=== PATIENT | female | born 1985 | race Caucasian/White ===

== ENCOUNTER 2017-05-27 19:45 | Emergency (ER) | payer MEDICAID, OTHER ==
[~2017-05-27] VITALS: Ht 165.1 cm; Wt 89.4 kg
[~2017-05-27 19:45] MED LIST: HYDR-3498 PO; ONDA4TAB35 PO
[2017-05-27 20:14] VITALS: Ht 165.1 cm; Wt 89.4 kg
[2017-05-27] MEDS ORDERED: KETOROLAC 30 MG INJ IV STA (21:44)
[2017-05-27] MEDS ORDERED: SOD CHLORIDE 0.9% 1,000 ML IV STA (21:44)
--- NOTE | 2017-05-27 23:01 | RADRPT ---
PROCEDURE: XR Chest. CLINICAL INDICATION: Chest pain TECHNIQUE: Single frontal view of the chest in apical lordotic position. COMPARISON: None. FINDINGS: The cardiomediastinal silhouette is within normal limits. Heart size is likely exaggerated by portab le technique and apical lordotic positioning. The lungs are clear. No signs of pleural fluid or pneu mothorax are seen. The osseous structures and soft tissues are unremarkable. IMPRESSION: No evidence for active cardiopulmonary disease. RPTAT: [facility] Physician Skylra Date Time Electronically viewed and signed by Physician Skylar on 05/27/2017 23:01 RS/
--- NOTE | 2017-05-27 23:23 | ERD ---
ER Documentation Chief Complaint Chief Complaint Chest pain HPI The patient is a 31-year-old female, with no significant past medical history, who presents to the Emergency Department with complaint of chest pain for the past 3 days. The patient reports that her pain is localized to the anterior upper chest wall, and intermittently radiates into the left upper extremity with paresthesias. The pain is described as sharp, constant, noted to be worse with palpation of the affected area, movement of the left upper extremity and taking deep breaths. She rates her current pain as 5 out of 10, but has not yet taken any medication for pain relief. She notes that she has experienced similar symptoms in the past, which usually occurs when she is angry. However, the symptoms have lasted for the past 3 days, prompting the visit to the ED. She denies diaphoresis, weakness, nausea, vomiting, shortness of breath, cough or palpitations. Denies any exertional symptoms. Denies orthopnea or paroxysmal nocturnal dyspnea. Patient denies any known history of diabetes, hypertension, dyslipidemia, obesity or tobacco use. Denies any positive familial cardiac history. Denies recent travel, lower extremity swelling, calf swelling or calf tenderness. Denies recent travel, pregnancies, surgeries, prolonged periods of immobilization, malignancy. Denies history of DVT or PE. ROS All systems reviewed and are negative except as per history of present illness. Medications Home Meds Active Scripts Naproxen* (Naprosyn*) 500 Mg Tablet, 500 MG PO BID Y for PAIN AND/OR INFLAMMATION, #30 TAB Prov:DEANNE ALARCON PA-C 05/27/17 Ondansetron Hcl* (Zofran* ODT) 4 mg -ODT Tab.disper, 4 MG PO Q6 Y for NAUSEA AND /OR VOMITING, #10 TAB Prov:NICHOLAS RAMIREZ PA-C 10/26/15 Hydrocodone Bit-Acetaminophen* ([place]*) 5-325 Mg Tab, 1 TAB PO Q6 Y for PAIN, # 7 TAB Prov:NICHOALS RAMIREZ PA-C 10/26/15 Allergies Allergies: Coded Allergies: No Known Allergy (Unverified , 10/26/15) PMhx/Soc History of Surgery: Yes ( X3) Anesthesia Reaction: No Hx Neurological Disorder: No Hx Respiratory Disorders: No Hx Cardiac Disorders: No Hx Psychiatric Problems: No Hx Miscellaneous Medical Probl: No Hx Alcohol Use: Yes Hx Substance Use: No Hx Tobacco Use: Yes Physical Exam Vitals Vital Signs Date Time Temp Pulse Resp B/P Pulse Ox O2 Delivery O2 Flow Rate FiO2 05/27/17 23:36 78 18 131/67 97 Room Air 05/27/17 20:14 96.9 61 20 110/62 99 Physical Exam GENERAL: Well-developed, well-nourished, female, in no acute distress. HEENT: Head is normocephalic, atraumatic. No scleral pallor or icterus. Pupils equal, round and reactive to light. Extraocular movements intact. Conjunctiva pink. Moist mucous membranes. NECK: Supple. Full range of motion. No carotid bruits. No JVD. RESPIRATORY: Lungs are clear to auscultation bilaterally. No rales, rhonchi or wheezing. Equal breath sounds. Normal expiratory effort. CARDIOVASCULAR: Regular rate and rhythm. S1 and S2 normal. No murmurs, rubs, or gallops. Distal pulses are palpable, 2+ bilaterally. Capillary refill is less than 2 seconds. CHEST WALL: Tenderness to palpation of the anterior chest wall, noted by facial wincing and the patient withdrawing from pain. No crepitus. No flail chest. GASTROINTESTINAL: Abdomen is soft, non-tender, and non-distended. Normal bowel sounds. FLANK: No CVA tenderness. BACK: No midline tenderness. EXTREMITIES: No clubbing, cyanosis, or edema. Normal skin perfusion. Moving all extremities. No lower extremity swelling. No calf swelling or calf tenderness. Muscle tone is normal. No focal swelling or erythema. NEUROLOGIC: The patient is alert, awake, and oriented x 3. No focal neurologic deficits. INTEGUMENT: Skin is intact. Warm and dry. No rashes, no vesicles, no petechiae present. Normal turgor. PSYCHIATRIC: Cooperative. Appropriate. Result Diagram: 05/27/17219905/27/172199 Results 24 hrs Laboratory Tests Test 05/27/17 22:00 White Blood Count 7.810^3/ul Red Blood Count 4.1510^6/ul Hemoglobin 12.7g/dl Hematocrit 38.2% Mean Corpuscular Volume 92.0fl Mean Corpuscular Hemoglobin 30.6pg Mean Corpuscular Hemoglobin Concent 33.2g/dl Red Cell Distribution Width 13.1% Platelet Count 29097^3/UL Mean Platelet Volume 11.2fl Neutrophils % 49.4% Lymphocytes % 40.2% Monocytes % 6.3% Eosinophils % 3.4% Basophils % 0.4% Nucleated Red Blood Cells % 0.0/100WBC Neutrophils # 3.810^3/ul Lymphocytes # 3.110^3/ul Monocytes # 0.510^3/ul Eosinophils # 0.310^3/ul Basophils # 0.010^3/ul Nucleated Red Blood Cells # 0.010^3/ul Prothrombin Time 12.5Sec Prothrombin Time Ratio 1.0 INR International Normalized Ratio 0.93 Activated Partial Thromboplast Time 27.0Sec Sodium Level 143mmol/L Potassium Level 4.0mmol/L Chloride Level 106mmol/L Carbon Dioxide Level 28mmol/L Anion Gap 13 Blood Urea Nitrogen 11mg/dl Creatinine 0.77mg/dl Glucose Level 87mg/dl Calcium Level 9.0mg/dl Total Bilirubin 0.2mg/dl Direct Bilirubin 0.00mg/dl Indirect Bilirubin 0.2mg/dl Aspartate Amino Transf (AST/SGOT) 33IU/L Alanine Aminotransferase (ALT/SGPT) 50IU/L Alkaline Phosphatase 125IU/L Troponin I < 0.012ng/ml B-Type Natriuretic Peptide 77PG/ML Total Protein 6.4g/dl Albumin 4.3g/dl Globulin 2.10g/dl Albumin/Globulin Ratio 2.04 Current Medications Medications (Trade) Dose Ordered Sig/Yeyo Route PRN Reason Start Time Stop Time Status Last Admin Dose Admin Sodium Chloride (NS) 1,000 ml @ 1,000 mls/hr Q1H STAT IV 05/27/17 21:44 05/27/17 22:43 DC 05/27/17 22:03 Ketorolac Tromethamine (Toradol) 30 mg ONCE STAT IV 05/27/17 21:44 05/27/17 21:46 DC 05/27/17 22:03 Procedures/MDM DIAGNOSTIC TESTS AND INTERPRETATION: PROCEDURE: XR Chest. CLINICAL INDICATION: Chest pain TECHNIQUE: Single frontal view of the chest in apical lordotic position. COMPARISON: None. FINDINGS:The cardiomediastinal silhouette is within normal limits. Heart size is likely exaggerated by portable technique and apical lordotic positioning. The lungs are clear. No signs of pleural fluid or pneumothorax are seen. The osseous structures and soft tissues are unremarkable. IMPRESSION:No evidence for active cardiopulmonary disease. Physician Skylar Date Time Electronically viewed and signed by Physician Skylar on 05/27/2017 23:01 EKG Reviewed and Interpreted by: Dr. Rojas EKG interpretation: Sinus bradycardia. 59 bpm. Normal axis. No ectopy. No ST segment elevations. No left bundle branch block. EMERGENCY DEPARTMENT COURSE: The patient was able throughout the ED course. IV access established by nursing staff. EKG, chest x-ray and laboratory testing Toradol administered. On reevaluation, the patient reports no new complaints, and decreased pain. Discussed patient case and presentation with the ED supervising physician, Dr. Griffith, who recommends that the patient be discharged home to follow-up with primary medical provider as an outpatient. MEDICAL DECISION MAKING: This is a 31-year-old female presenting to the Emergency Department with chest pain. The patient had tenderness to palpation over the chest wall on physical examination, but otherwise, no significant abnormalities were noted. Vital signs were stable. Patient is afebrile, with no tachycardia, no tachypnea, and normal O2 saturation. The differential diagnosis includes, but is not limited to gastritis, trauma, pneumothorax, dysrhythmia, hypertrophic cardiomyopathy, pericarditis, Prinzmetals angina, myocardial infarction, mitral valve prolapse , peptic ulcer disease, GERD, pleurisy, costochondritis, endocarditis, musculoskeletal pain, acute coronary syndrome, pulmonary embolism, aortic dissection, esophageal perforation, myocarditis, tamponade. The clinical presentation does not suggest an acute coronary syndrome, acute pulmonary embolism or any other emergent medical condition at this time. Labs: CBC reveals no leukocytosis. Hemoglobin and hematocrit are stable, no significant anemia noted. Electrolytes within normal limits, no indication for electrolyte replacement. BUN and creatinine normal, no evidence of pre-renal azotemia or acute kidney injury. Troponin < 0.012, greater than 6 hours after chest pain began making NSTEMI unlikely. Unstable angina unlikely on history/physical exam. Pulmonary embolism unlikely given risk factor profile and very atypical presentation. Aortic dissection unlikely given equal pulses and no tearing pain. Esophageal perforation unlikely: no retching or recent instrumentation. No evidence of pneumothorax on CXR, and patient has normal O2 saturation, and no signs of respiratory distress. After rest and administration of Toradol, patient's symptoms improved. Upon review and interpretation of the patient's presentation and overall ER course, I believe patient's symptoms are most consistent with atypical chest pain and chest wall pain. Suspect possible costochondritis. At this time, the patient is in stable condition and therefore can be discharged home with prescription for Naproxen and given strict return precautions or signs of deteriorating or worsening condition. She is strongly advised to follow up with her primary care provider within 2-3 days for reevaluation and further management, or return to the ER sooner if symptoms worsen. If symptoms return or worsen, patient should also consider outpatient cardiology evaluation. I shared my medical decision making and plan with the patient at length and in great detail, and she verbally understands and agrees with the plan for further observation and care as an outpatient. At the time of discharge, all questions were answered. Departure Diagnosis: Primary Impression: Atypical chest pain Additional Impression: Chest wall pain Condition: Stable Patient Instructions: Chest Pain, Uncertain Cause, Chest Wall Pain, Costochondritis Additional Instructions: Llame al doctor MAANA y suresh maged ESTEFANÍA PARA DENTRO DE 2-3 MCKEON.Dgale a la secretaria que nosotros le instruimos hacer esta estefanía.Avise o llame si welsh condicin se empeora antes de la estefanía. Regresa aqui si peor o no mejor. DEANNE ALARCON PA-C May 27, 2017 23:23
[2017-05-27] MEDS ORDERED: NAPR-260 PO (23:24)
[2017-05-27 23:36] VITALS: BP 131/67; PULSE 78; RESP 18
== END 2017-05-27 23:39 | disposition home or self-care (01) ==
LOC: FTE 19:45
DX: R07.89 Other chest pain (principal); R06.02 Shortness of breath
CPT/HCPCS: 36415; 71010; 80053; 83880; 84484; 85025; 85610; 85730; 93005; 96374; J1885; J7030; Z7502

== ENCOUNTER → 2017-09-20 | Emergency (ER) | END | disposition home or self-care (01) ==

== ENCOUNTER 2018-12-02 18:14 | Emergency (ER) | payer OTHER ==
[~2018-12-02] VITALS: Wt 88.5 kg
[~2018-12-02 18:14] MED LIST changes: +IBUP-1542 PO; +NAPR-985 PO
[2018-12-02] MEDS ORDERED: IBUP-1542 PO (19:19)
--- NOTE | 2018-12-02 19:24 | ERD ---
ER Documentation Chief Complaint Chief Complaint BILAT BREAST PAIN X'S 3 DAYS HPI Patient is a 33-year-old female with no past medical history presents to the ER for concerns of bilateral breast pain for the last 3 days. Patient denies any nipple bleeding or discharge. Patient denies any fevers or chills. Patient denies any redness, swelling or pain. She denies any chest pain, shortness of breath, left arm pain, nausea, vomiting, diaphoresis or LOC. Patient has not taken any medication for symptoms. Patient states her last menstrual period was 11-13-18. ROS All systems reviewed and are negative except as per history of present illness. Medications Home Meds Active Scripts Ibuprofen* (Motrin*) 600 Mg Tab, 600 MG PO Q6, #30 TAB Prov:AJAY PORRAS PA-C 12/02/18 Ibuprofen* (Motrin*) 600 Mg Tab, 600 MG PO Q6, #30 TAB Prov:ZAY PAIGE 09/20/17 Naproxen* (Naprosyn*) 500 Mg Tablet, 500 MG PO BID PRN for PAIN AND/OR INFLAMMATION, #30 TAB Prov:DEANNE ALARCON PA-C 05/27/17 Ondansetron Hcl* (Zofran* ODT) 4 mg -ODT Tab.disper, 4 MG PO Q6 PRN for NAUSEA AND/OR VOMITING, #10 TAB Prov:NICHOLAS RAMIREZ PA-C 10/26/15 Hydrocodone Bit-Acetaminophen* ([place]*) 5-325 Mg Tab, 1 TAB PO Q6 PRN for PAIN, #7 TAB Prov:NICHOLAS RAMIREZ PA-C 10/26/15 Allergies Allergies: Coded Allergies: No Known Allergy (Unverified , 10/26/15) PMhx/Soc History of Surgery: No Anesthesia Reaction: No Hx Neurological Disorder: No Hx Respiratory Disorders: No Hx Cardiac Disorders: No Hx Psychiatric Problems: No Hx Miscellaneous Medical Probl: No Hx Alcohol Use: Yes (SOCIALLY) Hx Substance Use: No Hx Tobacco Use: Yes Smoking Status: Current every day smoker FmHx Family History: No diabetes Physical Exam Vitals Vital Signs Date Temp Pulse Resp B/P (MAP) Pulse Ox O2 O2 Flow FiO2 Time Delivery Rate 12/02/18 99.0 69 18 117/62 97 18:39 (80) Physical Exam GENERAL: Well-developed, well-nourished female. Appears in no acute distress. Speaking in full sentences. HEAD: Normocephalic, atraumatic. EYES: Pupils are equally reactive bilaterally. EOMs grossly intact. No conjunctival erythema. ENT: Moist mucous membranes. No uvula deviation. No kissing tonsils. NECK: Supple. No meningismus. Normal range of motion of the neck. BREAST: No redness, swelling of bilateral breast. Bilateral breasts are tender to palpation. Pain is reproducible. LUNG: Clear to auscultation bilaterally. No rhonchi, wheezing, rales or coarse breath sounds. HEART: Regular rate and rhythm. No murmurs, rubs or gallops. Equal pulses in bilateral upper extremities. EXTREMITIES: Equal pulses bilaterally. No peripheral clubbing, cyanosis or edema. No unilateral leg swelling. NEUROLOGIC: Alert and oriented. Moving all four extremities without any difficulty. Normal speech. Steady gait. SKIN: Normal color. Warm and dry. No rashes or lesions. Results 24 hrs Laboratory Tests Test 12/02/18 19:10 POC Beta HCG, Qualitative NEGATIVE Procedures/MDM ED COURSE: The patient was stable throughout ED course. I kept the patient and/or family informed of laboratory and diagnostic imaging results throughout the ED course. EKG: Read by Dr. Rojas, attending physician. EKG shows normal sinus rhythm at a rate of 65 bpm No arrhythmias, acute ST elevations or T wave changes were noted. MEDICAL DECISION MAKING: Patient is a 33-year-old female in no PMHX who presents the ER for concerns of bilateral breast pain x3 days.. Vital signs were reviewed. Patient is afebrile. Patient was not hypoxic. Patient was hemodynamically stable. On exam, patient did have bilateral reproducible breast pain. Patient had no nipple bleeding or discharge. Urine test was negative. Low suspicion for . EKG was obtained and showed normal sinus rhythm. Reviewed by ED attending Dr. Rojas. Low suspicion for ACS, arrhythmia, pericarditis. At this time, patient presentation is most consistent with bilateral breast pain. Patient advised to follow-up with [facility] and her PCP for mammogram. PRESCRIPTION: Ibuprofen DISCHARGE: At this time, patient is stable for discharge and outpatient management. I have instructed the patient to follow-up with his/her primary care physician in 1-2 days. I have discussed with the patient the possibility of needing to see a specialist for further workup and imaging studies if symptoms persist. I have instructed the patient to promptly return to the ER for any new or worsening symptoms including increased pain, fever, nausea, vomiting, weakness or LOC. The patient and/or family expressed understanding of and agreement with this plan. All questions were answered. Home care instructions were provided. Disclaimer: Inadvertent spelling and grammatical errors are likely due to EHR/dictation software use and do not reflect on the overall quality of patient care. Also, please note that the electronic time recorded on this note does not necessarily reflect the actual time of the patient encounter. Departure Diagnosis: Primary Impression: Pain of both breasts Condition: Fair Patient Instructions: Breast Self-Exam (BSE) Referrals: [facility] YOU HAVE RECEIVED A MEDICAL SCREENING EXAM AND THE RESULTS INDICATE THAT YOU DO NOT HAVE A CONDITION THAT REQUIRES URGENT TREATMENT IN THE EMERGENCY DEPARTMENT. FURTHER EVALUATION AND TREATMENT OF YOUR CONDITION CAN WAIT UNTIL YOU ARE SEEN IN YOUR DOCTORS OFFICE WITHIN THE NEXT 1-2 DAYS. IT IS YOUR RESPONSIBILITY TO MAKE AN APPOINTMENT FOR FOLOW-UP CARE. IF YOU HAVE A PRIMARY DOCTOR --you should call your primary doctor and schedule an appointment IF YOU DO NOT HAVE A PRIMARY DOCTOR YOU CAN CALL OUR PHYSICIAN REFERRAL HOTLINE AT IF YOU CAN NOT AFFORD TO SEE A PHYSICIAN YOU CAN CHOSE FROM THE FOLLOWING [facility] [address] [facility]. [facility] [address]. [facility] [address] [facility]. [facility] [address] [facility]. [facility] [address] [facility]. [facility]. [address] [facility]. [facility] YOU HAVE RECEIVED A MEDICAL SCREENING EXAM AND THE RESULTS INDICATE THAT YOU DO NOT HAVE A CONDITION THAT REQUIRES URGENT TREATMENT IN THE EMERGENCY DEPARTMENT. FURTHER EVALUATION AND TREATMENT OF YOUR CONDITION CAN WAIT UNTIL YOU ARE SEEN IN YOUR DOCTORS OFFICE WITHIN THE NEXT 1-2 DAYS. IT IS YOUR RESPONSIBILITY TO MAKE AN APPOINTMENT FOR FOLOW-UP CARE. IF YOU HAVE A PRIMARY DOCTOR --you should call your primary doctor and schedule and appointment IF YOU DO NOT HAVE A PRIMARY DOCTOR YOU CAN CALL OUR PHYSICIAN REFERRAL HOTLINE AT . IF YOU CAN NOT AFFORD TO SEE A PHYSICIAN YOU CAN CHOSE FROM THE FOLLOWING ON LICENSE OF [facility] INSTITUTIONS: [facility] [address] [place] [address] [facility] [address] [place] [address] [facility] [address] [place] [address] [facility] URGENT CARE/SPECIALTIES Additional Instructions: Va welsh doctor para maged mammografia. Llame al doctor MAANA y suresh maged ESTEFANÍA PARA DENTRO DE 1-2 MCKEON.Dgale a la secretaria que nosotros le instruimos hacer esta estefanía.Avise o llame si welsh condicin se empeora antes de la estefanía. Regresa aqui si peor o no mejor. AJAY PORRAS PA-C December 02, 2018 19:24
[2018-12-02 20:08] VITALS: BP 109/57; PULSE 64; RESP 18
--- NOTE | 2018-12-03 14:27 | RADRPT ---
Vent Rate: 65 bpm RR Interval: 0 msec ID Interval: 154 msec QRS Duration: 86 msec QT Interval: 384 msec QTC Interval: 399 msec P-R-T [place]: 42 - 76 - 29 degrees Normal sinus rhythm Normal ECG Electronically Signed By: [facility]
== END 2018-12-02 20:09 | disposition home or self-care (01) ==
LOC: FTE 18:14
DX: N64.4 Mastodynia (principal); F17.210 Nicotine dependence, cigarettes, uncomplicated
CPT/HCPCS: 81025; 93005; Z7502